=== PATIENT | male | born 1970 | race Caucasian/White ===

== ENCOUNTER 2017-12-08 22:03 | Emergency (ER) | payer OTHER ==
[~2017-12-08] VITALS: Ht 177.8 cm; Wt 81.6 kg
[2017-12-09] MEDS ORDERED: TETANUS-DIPTH-ACEL PERTUSSIS 0.5ML SYRG IM ONE (00:45)
[2017-12-09] MEDS ORDERED: HYDROcodone-ACET 10/325MG TAB PO ONE (00:45)
[2017-12-09 02:43] VITALS: BP 108/62
[2017-12-09] MEDS ORDERED: ceFAZolin 1GM/50ML 50 ML IV ONE ×2 (03:04→03:15)
== END 2017-12-09 04:24 | disposition home or self-care (01) ==
LOC: ER 22:13
DX: S01.01XA Laceration without foreign body of scalp, initial encounter (principal); S00.83XA Contusion of other part of head, initial encounter; S60.212A Contusion of left wrist, initial encounter; Y08.89XA Assault by other specified means, initial encounter; Y93.89 Activity, other specified; Y99.8 Other external cause status; Y92.89 Other specified places as the place of occurrence of the external cause
CPT/HCPCS: 12004; 70450; 70486; 71045; 72125; 73130; 90471; 96374; 99284; J0690